=== PATIENT | female | born 1945 | race Caucasian/White ===

== ENCOUNTER 2016-12-23 14:49 | Outpatient (CLI) | payer MEDICARE | END 2016-12-23 14:50 | disposition home or self-care (01) | DX: S22.42XA Multiple fractures of ribs, left side, initial encounter for closed fracture (principal); R07.81 Pleurodynia ==

== ENCOUNTER 2017-03-02 08:09 | Outpatient (CLI) | payer MEDICARE ==
[2017-03-02 10:57] LABS: BASOPHILS # (AUTO) 0.1 10^3/uL (0.0-0.1); BASOPHILS % (AUTO) 1.7 %; EOSINOPHILS # (AUTO) 0.2 10^3/uL (0.0-0.7); EOSINOPHILS % (AUTO) 5.3 %; HCT - HEMATOCRIT 44.8 % (37.0-47.0); HGB - HEMOGLOBIN 14.9 g/dL (12.0-16.0); LYMPHOCYTES # (AUTO) 1.1 10^3/uL (1.5-3.5); LYMPHOCYTES % (AUTO) 25.2 %; MEAN CORPUSCULAR HEMOGLOBIN 28.4 pg (27.0-31.0); MEAN CORPUSCULAR HGB CONC 33.3 g/dL (32.0-36.0); MEAN CORPUSCULAR VOLUME 85.3 fL (81.0-99.0); MEAN PLATELET VOLUME 9.3 fL (7.9-10.8); MONOCYTES # (AUTO) 0.4 10^3/uL (0.0-1.0); MONOCYTES % (AUTO) 9.2 %; NEUTROPHILS # (AUTO) 2.5 10^3/uL (1.5-6.6); NEUTROPHILS % (AUTO) 58.6 %; RED BLOOD COUNT 5.25 10^6/uL (4.20-5.40); RED CELL DISTRIBUTION WIDTH 13.4 % (12.0-15.0); UNCORRECTED WHITE BLOOD COUNT 4.2 x10^3/uL; WHITE BLOOD COUNT 4.2 x10^3/uL (4.8-10.8)
[2017-03-02 11:17] LABS: HEMOGLOBIN A1C 0.65 g/dL
[2017-03-02 11:19] LABS: ALBUMIN/GLOBULIN RATIO 1.4 (1.0-2.2); BILIRUBIN,TOTAL 0.9 mg/dL (0.2-1.0); BUN - BLOOD UREA NITROGEN 16 mg/dL (6-20); CALCIUM 9.2 mg/dL (8.5-10.3); CARBON DIOXIDE - CO2 28 mmol/L (21-32); CHLORIDE 103 mmol/L (101-111); CHOL/HDL RATIO 4.3 (<4.4); CHOLESTEROL 235 mg/dL; CREATININE 0.9 mg/dL (0.4-1.0); GFR - MDRD 62 (>89); GLUCOSE 106 mg/dL (70-100); HDL CHOLESTEROL 55 mg/dL; LDL/HDL RATIO 2.9 (<4.4); POTASSIUM 3.8 mmol/L (3.5-5.0); SODIUM 140 mmol/L (135-145); TRIGLYCERIDES 109 mg/dL; VLDL CHOLESTEROL 22 mg/dL
[2017-03-02 11:34] LABS: FERRITIN 27.8 ng/mL (11.0-306.8); TOTAL T3 1.46 ng/mL (0.87-1.78)
[2017-03-02 11:46] LABS: THYROID STIMULATING HORMONE 3.6 uIU/mL (0.34-5.60)
== END 2017-03-02 08:10 | disposition home or self-care (01) ==
LOC: LAB.F 08:09
PROVIDERS: ATTEND Family Medicine
DX: Z00.00 Encounter for general adult medical examination without abnormal findings (principal); R53.83 Other fatigue; R73.09 Other abnormal glucose
CPT/HCPCS: 36415; 80053; 80061; 82306; 82728; 83036; 84439; 84443; 84480; 84481; 84482; 85025

== ENCOUNTER 2017-03-09 13:04 | Outpatient (CLI) | payer MEDICARE | END 2017-03-09 13:05 | disposition home or self-care (01) | DX: M81.0 Age-related osteoporosis without current pathological fracture (principal); M43.9 Deforming dorsopathy, unspecified ==

== ENCOUNTER 2017-03-09 13:05 | Outpatient (CLI) | payer MEDICARE | END 2017-03-09 13:06 | disposition home or self-care (01) | DX: Z12.31 Encounter for screening mammogram for malignant neoplasm of breast (principal) ==

== ENCOUNTER 2017-06-14 14:53 | Outpatient (CLI) | payer MEDICARE ==
--- NOTE | 2017-06-15 13:33 | XRAY Report ---
TWO VIEW RIGHT LOWER LE06/14/2017 CLINICAL INDICATION: Contusion, trauma. FINDINGS: Frontal and lateral views of the right lower leg demonstrate pretibial soft tissue swellin g distally. There is no evidence of acute fracture or dislocation. No foreign body is seen in the sof t tissues. IMPRESSION: SOFT TISSUE SWELLING, BUT NO EVIDENCE OF ACUTE FRACTURE. JOB #: [id number] EXT JOB #:[id number]
== END 2017-06-14 14:54 | disposition home or self-care (01) ==
LOC: DI.S 14:53
PROVIDERS: ATTEND Family Medicine
DX: M79.9 Soft tissue disorder, unspecified (principal)

== ENCOUNTER 2018-02-27 07:57 | Outpatient (CLI) | payer MEDICARE ==
[2018-02-27 12:09] LABS: ALBUMIN 3.6 g/dL (3.2-5.5); ALBUMIN/GLOBULIN RATIO 1.2 (1.0-2.2); ALKALINE PHOSPHATASE 98 IU/L (42-121); ALT ALANINE AMINOTRANSFERASE 18 IU/L (10-60); AST ASPARTATE AMINOTRANSFERASE 17 IU/L (10-42); BILIRUBIN,TOTAL 0.9 mg/dL (0.2-1.0); BUN - BLOOD UREA NITROGEN 25 mg/dL (6-20); CALCIUM 9.1 mg/dL (8.5-10.3); CARBON DIOXIDE - CO2 29 mmol/L (21-32); CHLORIDE 105 mmol/L (101-111); CHOL/HDL RATIO 4.2 (<4.4); CHOLESTEROL 213 mg/dL; CREATININE 0.9 mg/dL (0.4-1.0); GFR - MDRD 62 (>89); GLUCOSE 99 mg/dL (70-100); HDL CHOLESTEROL 51 mg/dL; LDL CHOLESTEROL,CALCULATED 139 mg/dL; LDL/HDL RATIO 2.7 (<4.4); SODIUM 140 mmol/L (135-145); TOTAL PROTEIN 6.6 g/dL (6.7-8.2); VLDL CHOLESTEROL 23 mg/dL
[2018-02-27 12:25] LABS: THYROID STIMULATING HORMONE 2.85 uIU/mL (0.34-5.60)
[2018-02-27 12:27] LABS: FREE T4 (FREE THYROXINE) 0.78 ng/dL (0.58-1.64)
[2018-02-27 12:32] LABS: FERRITIN 32.7 ng/mL (11.0-306.8); TOTAL T3 1.37 ng/mL (0.87-1.78)
[2018-02-27 12:45] LABS: HB2 TOTAL 16.2 g/dL; HEMOGLOBIN A1C 0.56 g/dL; HEMOGLOBIN A1C % 5.3 % (4.6-6.2)
[2018-02-27 17:39] LABS: BASOPHILS # (AUTO) 0.1 10^3/uL (0.0-0.1); BASOPHILS % (AUTO) 1.4 %; EOSINOPHILS # (AUTO) 0.2 10^3/uL (0.0-0.7); EOSINOPHILS % (AUTO) 5.7 %; HGB - HEMOGLOBIN 14.8 g/dL (12.0-16.0); LYMPHOCYTES # (AUTO) 1.3 10^3/uL (1.5-3.5); LYMPHOCYTES % (AUTO) 31.4 %; MEAN CORPUSCULAR HEMOGLOBIN 29.1 pg (27.0-31.0); MEAN CORPUSCULAR VOLUME 88.3 fL (81.0-99.0); MEAN PLATELET VOLUME 9.5 fL (7.9-10.8); MONOCYTES # (AUTO) 0.3 10^3/uL (0.0-1.0); MONOCYTES % (AUTO) 8.5 %; NEUTROPHILS # (AUTO) 2.1 10^3/uL (1.5-6.6); PLT - PLATELET COUNT 236 10^3/uL (130-450); RED BLOOD COUNT 5.08 10^6/uL (4.20-5.40); RED CELL DISTRIBUTION WIDTH 13.8 % (12.0-15.0)
== END 2018-02-27 07:58 | disposition home or self-care (01) ==
LOC: LAB.F 07:57
PROVIDERS: ATTEND Family Medicine
DX: Z00.00 Encounter for general adult medical examination without abnormal findings (principal); E03.9 Hypothyroidism, unspecified; R53.83 Other fatigue; E55.9 Vitamin D deficiency, unspecified
CPT/HCPCS: 36415; 80053; 80061; 82306; 82728; 83036; 83721; 84439; 84443; 84480; 84481; 85025

== ENCOUNTER 2019-03-09 07:30 | Outpatient (CLI) | payer MEDICARE ==
[2019-03-09 10:19] LABS: BASOPHILS # (AUTO) 0.1 10^3/uL (0.0-0.1); BASOPHILS % (AUTO) 1.2 %; EOSINOPHILS # (AUTO) 0.2 10^3/uL (0.0-0.7); EOSINOPHILS % (AUTO) 4.9 %; HGB - HEMOGLOBIN 15.5 g/dL (12.0-16.0); LYMPHOCYTES # (AUTO) 1.4 10^3/uL (1.5-3.5); LYMPHOCYTES % (AUTO) 32.9 %; MEAN CORPUSCULAR HEMOGLOBIN 28.7 pg (27.0-31.0); MONOCYTES # (AUTO) 0.4 10^3/uL (0.0-1.0); MONOCYTES % (AUTO) 8.8 %; NEUTROPHILS # (AUTO) 2.3 10^3/uL (1.5-6.6); PLT - PLATELET COUNT 239 10^3/uL (130-450); WHITE BLOOD COUNT 4.3 x10^3/uL (4.8-10.8)
[2019-03-09 10:38] LABS: ALBUMIN/GLOBULIN RATIO 1.3 (1.0-2.2); ALKALINE PHOSPHATASE 86 IU/L (42-121); ALT ALANINE AMINOTRANSFERASE 17 IU/L (10-60); AST ASPARTATE AMINOTRANSFERASE 17 IU/L (10-42); BILIRUBIN,TOTAL 0.7 mg/dL (0.2-1.0); BUN - BLOOD UREA NITROGEN 21 mg/dL (6-20); CALCIUM 9.2 mg/dL (8.5-10.3); CARBON DIOXIDE - CO2 27 mmol/L (21-32); CHLORIDE 104 mmol/L (101-111); CHOL/HDL RATIO 4.3 (<4.4); CHOLESTEROL 238 mg/dL; CREATININE 0.8 mg/dL (0.4-1.0); GFR - MDRD 71 (>89); GLUCOSE 99 mg/dL (70-100); HDL CHOLESTEROL 56 mg/dL; LDL CHOLESTEROL,CALCULATED 155 mg/dL; LDL/HDL RATIO 2.8 (<4.4); SODIUM 140 mmol/L (135-145); VLDL CHOLESTEROL 27 mg/dL
[2019-03-09 10:52] LABS: THYROID STIMULATING HORMONE 3.35 uIU/mL (0.34-5.60)
[2019-03-09 10:53] LABS: FREE T4 (FREE THYROXINE) 0.87 ng/dL (0.58-1.64)
[2019-03-09 10:57] LABS: TOTAL T3 1.35 ng/mL (0.87-1.78)
[2019-03-09 10:58] LABS: FERRITIN 27.1 ng/mL (11.0-306.8)
[2019-03-09 11:06] LABS: HEMOGLOBIN A1C 0.64 g/dL; HEMOGLOBIN A1C % 5.6 % (4.6-6.2)
== END 2019-03-09 07:31 | disposition home or self-care (01) ==
LOC: LAB.S 07:30
PROVIDERS: ATTEND Family Medicine
DX: Z00.00 Encounter for general adult medical examination without abnormal findings (principal); E03.9 Hypothyroidism, unspecified; E55.9 Vitamin D deficiency, unspecified; R73.09 Other abnormal glucose; D64.9 Anemia, unspecified; R53.83 Other fatigue
CPT/HCPCS: 36415; 80053; 80061; 82306; 82626; 82728; 83036; 83090; 83721; 84439; 84443; 84480; 84481; 85025

== ENCOUNTER 2019-04-11 10:35 | Outpatient (CLI) | payer MEDICARE ==
--- NOTE | 2019-04-12 17:09 | XRAY Report ---
Reason: LUMBAR BACK INJURY 2 WKS AGO, WORSENING PAIN WEA Procedure Date: 04/11/2019 Accession Number: [id number] / [id number] Procedure: XRS - Lumbar Spine 2 View CPT Code: FULL RESULT: EXAM: LUMBOSACRAL SPINE RADIOGRAPHY EXAM DATE: 04/11/2019 10:51 AM. CLINICAL HISTORY: LUMBAR BACK INJURY 2 WKS AGO, WORSENING PAIN WEA. COMPARISONS: PELVIS 1 VIEW 04/11/2019 10:54 AM LUMBAR SPINE 2 VIEW 03/09/2017 1:40 PM. TECHNIQUE: 3 views. FINDINGS: Alignment: Minimal left convex lumbar curvature. Bones: Five [id number] lumbar vertebral bodies are present. Severe osteopenia again noted limiting evaluation. No acute fracture lines are seen. Prior anterior compression of T12, L1, and L3 appear unchanged. No new compression deformities are evident. Disks: Multilevel mild to moderate disk height loss with disk osteophytes again seen. Facets: Multilevel moderate to severe degenerative facet hypertrophy noted. Sacroiliac Joints: Unremarkable. Soft Tissues: Normal. The visualized bowel gas pattern is normal. IMPRESSION: 1. Osteopenia without evidence for acute fracture of the lumbar spine. 2. Prior compression deformities in T12, L1, and L3 appear essentially unchanged. 3. Multilevel degenerative changes seen in the lumbar spine. RADIA
--- NOTE | 2019-04-12 17:11 | XRAY Report ---
Reason: LUMBAR BACK INJURY 2 WKS AGO, WORSENING PAIN WEA Procedure Date: 04/11/2019 Accession Number: [id number] / [id number] Procedure: XRS - Pelvis 1 View CPT Code: FULL RESULT: EXAM: PELVIS RADIOGRAPHY EXAM DATE: 04/11/2019 10:51 AM. CLINICAL HISTORY: LUMBAR BACK INJURY 2 WKS AGO, WORSENING PAIN WEA. COMPARISON: HIP 2 VIEW RT 01/10/2015 5:16 PM. TECHNIQUE: 1 view. FINDINGS: Bones: Normal. No fracture or bone lesion. Joints: The visualized hip, pubis symphysis, and sacroiliac joints are preserved. No subluxation. Soft Tissues: Normal. No soft tissue swelling. IMPRESSION: Normal pelvis radiography. RADIA
== END 2019-04-11 10:36 | disposition home or self-care (01) ==
LOC: DI.S 10:35
PROVIDERS: ATTEND Family Medicine
DX: M51.36 Other intervertebral disc degeneration, lumbar region (principal); M48.56XS Collapsed vertebra, not elsewhere classified, lumbar region, sequela of fracture; M48.54XS Collapsed vertebra, not elsewhere classified, thoracic region, sequela of fracture; M47.816 Spondylosis without myelopathy or radiculopathy, lumbar region; M85.88 Other specified disorders of bone density and structure, other site
CPT/HCPCS: 72100; 72170

== ENCOUNTER 2019-04-13 08:16 | Outpatient (CLI) | payer MEDICARE ==
--- NOTE | 2019-04-13 09:41 | Mammography Report ---
Reason: SCREENING MAMMO Procedure Date: 04/13/2019 Accession Number: [id number] / [id number] Procedure: BRIAN - Screening Mammo w/Kevin CPT Code: FULL RESULT: EXAM: Screening Mammo w/Kevin DATE: 04/13/2019 8:46 AM CLINICAL HISTORY: Screening encounter. History of nulliparity. TECHNIQUE: (B) - Bilateral CC and MLO views were obtained. A right laterally exaggerated CC view is obtained. COMPARISON: 03/09/2017 through 04/02/2013. PARENCHYMAL PATTERN: (A) - The breast(s) demonstrate(s) scattered fibroglandular densities. FINDINGS: There are coarse typically benign calcifications. There are no suspicious masses, calcifications, or areas of distortion. IMPRESSION: Benign findings. BI-RADS category 2. RECOMMENDATION: (ANNUAL) - Recommend routine annual screening mammography. BI-RADS CATEGORY: (2) - Benign Findings. STANDARD QUALIFYING STATEMENTS: 1. This examination was not reviewed with the aid of Computer-Aided Detection (CAD). 2. A negative or benign imaging report should not preclude biopsy if clinically suspicious findings are present. 3. Dense breasts may obscure an underlying neoplasm. 4. This examination was reviewed with the aid of 3D breast imaging (tomosynthesis).
== END 2019-04-13 08:17 | disposition home or self-care (01) ==
LOC: DI 08:16
PROVIDERS: ATTEND Family Medicine
DX: Z12.31 Encounter for screening mammogram for malignant neoplasm of breast (principal)
CPT/HCPCS: 77063; 77067

== ENCOUNTER 2019-04-13 08:22 | Outpatient (CLI) | payer MEDICARE ==
--- NOTE | 2019-04-16 08:34 | DEXA Report ---
Reason: OSTEOPORSIS Procedure Date: 04/13/2019 Accession Number: [id number] / [id number] Procedure: DEX - Dexa Spine and/or Hip CPT Code: FULL RESULT: EXAM: Dexa Spine and/or Hip DATE: 04/13/2019 9:18 AM CLINICAL HISTORY: OSTEOPORSIS TECHNIQUE: Dual energy x-ray absorptiometry (DXA) was performed on a [employer] System. Regions measured are the AP Spine, femoral neck, and if needed forearm. COMPARISON: None. In accordance with the International Society for Clinical Densitometry (ISCD) guidelines, data from previous exams may be reanalyzed using current recommendations and techniques. This is done to allow a more accurate basis for comparison with the current study. FINDINGS: The data for the lumbar spine is as follows: BMD (g/cm/cm) T-SCORE Z-SCORE REGION L1 0.643 -4.1 -2.4 L2 0.607 -4.9 -3.3 L3 0.934 -2.2 -0.5 L4 0.706 -4.1 -2.4 TOTAL 0.724 -3.8 -2.1 NOTE: All evaluable vertebrae are used for classification The data for the hip is as follows: BMD (g/cm/cm) T-SCORE Z-SCORE REGION Neck 0.705 -2.4 -0.6 TOTAL 0.704 -2.4 -0.9 NOTE: The femoral neck or total proximal femur, whichever is lowest, is used for classification. DXA RESULTS SUMMARY: Spine SCAN DATE AGE BMD CHANGE VS CHANGE VS PREVIOUS PREVIOUS % 73.9 0.724 0.063* 9.5* 69.8 0.661 * Denotes significant change at the 95% confidence level. Denotes dissimilar scan types or analysis methods. DXA RESULTS SUMMARY: Hip SCAN DATE AGE BMD CHANGE VS CHANGE VS PREVIOUS PREVIOUS % 04/13/2019 73.9 0.704 -0.036* -4.9* 03[birth year]09/2017 [age] 0.740 * Denotes significant change at the 95% confidence level. Denotes dissimilar scan types or analysis methods. IMPRESSION: THE WHO CLASSIFICATION BASED ON THE INTERNATIONAL REFERENCE STANDARD IS OSTEOPOROSIS. THE FRACTURE RISK IS HIGH. RECOMMENDATION: Patients with diagnosis of osteoporosis or osteopenia should have regular bone mineral density assessment. For those eligible for Medicare, routine testing is allowed once every 2 years. Testing frequency can be increased for patients who have rapidly progressing disease or for those who are receiving medical therapy to restore bone mass. COMMENT: World Health Organization (WHO) definitions for osteoporosis and osteopenia: NORMAL BMD: T-score at -1.0 or higher, fracture risk is low OSTEOPENIA BMD: T-score between -1.0 and -2.5, fracture risk is increased. OSTEOPOROSIS BMD: T-score at -2.5 or lower, fracture risk is high. National Osteoporosis Foundation recommends: 1. Obtain adequate dietary calcium (at least 1200 mg per day) and vitamin D (400-800 international units per day). 2. Participate, as appropriate, in regular weightbearing and muscle-strengthening exercise. 3. Avoid tobacco use and reduce alcohol and caffeine intake. 4. For more detailed information see the website at www.NOF.org.
== END 2019-04-13 08:23 | disposition home or self-care (01) ==
LOC: DI 08:22
PROVIDERS: ATTEND Family Medicine
DX: M81.0 Age-related osteoporosis without current pathological fracture (principal)
CPT/HCPCS: 77080

== ENCOUNTER 2020-03-24 07:33 | Outpatient (CLI) | payer MEDICARE ==
[2020-03-24 15:22] LABS: BASOPHILS # (AUTO) 0.1 10^3/uL (0.0-0.1); BASOPHILS % (AUTO) 1.1 %; EOSINOPHILS # (AUTO) 0.2 10^3/uL (0.0-0.7); EOSINOPHILS % (AUTO) 4.5 %; HGB - HEMOGLOBIN 13.3 g/dL (12.0-16.0); LYMPHOCYTES # (AUTO) 1.4 10^3/uL (1.5-3.5); LYMPHOCYTES % (AUTO) 31.3 %; MEAN CORPUSCULAR HEMOGLOBIN 26.7 pg (27.0-31.0); MEAN CORPUSCULAR HGB CONC 31.3 g/dL (32.0-36.0); MEAN CORPUSCULAR VOLUME 85.3 fL (81.0-99.0); MEAN PLATELET VOLUME 11.4 fL (7.9-10.8); MONOCYTES # (AUTO) 0.5 10^3/uL (0.0-1.0); MONOCYTES % (AUTO) 10.2 %; NEUTROPHILS # (AUTO) 2.3 10^3/uL (1.5-6.6); NEUTROPHILS % (AUTO) 52.7 %; PLT - PLATELET COUNT 266 10^3/uL (130-450); RED BLOOD COUNT 4.98 10^6/uL (4.20-5.40); RED CELL DISTRIBUTION WIDTH 13.2 % (12.0-15.0); WHITE BLOOD COUNT 4.4 x10^3/uL (4.8-10.8)
[2020-03-24 15:44] LABS: ALBUMIN 3.7 g/dL (3.2-5.5); ALBUMIN/GLOBULIN RATIO 1.3 (1.0-2.2); ALKALINE PHOSPHATASE 58 IU/L (42-121); ALT ALANINE AMINOTRANSFERASE 18 IU/L (10-60); AST ASPARTATE AMINOTRANSFERASE 19 IU/L (10-42); BILIRUBIN,TOTAL 0.7 mg/dL (0.2-1.0); BUN - BLOOD UREA NITROGEN 26 mg/dL (6-20); CARBON DIOXIDE - CO2 28 mmol/L (21-32); CHLORIDE 104 mmol/L (101-111); CHOL/HDL RATIO 3.7 (<4.4); CHOLESTEROL 192 mg/dL; CREATININE 0.9 mg/dL (0.4-1.0); CRP HIGH SENSITIVITY 0.8 mg/L; GLUCOSE 100 mg/dL (70-100); HDL CHOLESTEROL 52 mg/dL; LDL CHOLESTEROL,CALCULATED 126 mg/dL; LDL/HDL RATIO 2.4 (<4.4); SODIUM 138 mmol/L (135-145); TOTAL PROTEIN 6.6 g/dL (6.7-8.2); VLDL CHOLESTEROL 14 mg/dL
[2020-03-24 15:46] LABS: THYROID STIMULATING HORMONE 3.51 uIU/mL (0.34-5.60)
[2020-03-24 15:48] LABS: FREE T3 3.39 pg/mL (2.5-3.9); FREE T4 (FREE THYROXINE) 0.82 ng/dL (0.58-1.64)
[2020-03-24 15:51] LABS: HB2 TOTAL 13.8 g/dL; HEMOGLOBIN A1C 0.54 g/dL; HEMOGLOBIN A1C % 5.7 % (4.6-6.2)
[2020-03-24 15:53] LABS: FERRITIN 9.7 ng/mL (11.0-306.8); TOTAL T3 1.37 ng/mL (0.87-1.78)
[2020-03-25 13:19] LABS: HOMOCYSTEINE 12.9 umol/L (<10.4)
== END 2020-03-24 07:34 | disposition home or self-care (01) ==
LOC: LAB.S 07:33
PROVIDERS: ATTEND Family Medicine
DX: Z00.00 Encounter for general adult medical examination without abnormal findings (principal); D64.9 Anemia, unspecified; R53.83 Other fatigue; E03.9 Hypothyroidism, unspecified; E78.5 Hyperlipidemia, unspecified; E72.11 Homocystinuria
CPT/HCPCS: 36415; 80053; 80061; 82626; 82728; 83036; 83090; 83721; 84439; 84443; 84480; 84481; 85025; 86141

== ENCOUNTER 2020-05-20 16:07 | Outpatient (CLI) | payer MEDICARE ==
--- NOTE | 2020-05-20 17:05 | XRAY Report ---
PROCEDURE: Hand 3 View LT INDICATIONS: NON TRAUMATIC BRUISE/SWELLING TECHNIQUE: 3 views of the hand(s) acquired. COMPARISON: none FINDINGS: Bones: No fractures or dislocations. No suspicious bony lesions. Soft tissues: No suspicious soft tissue calcifications. IMPRESSION: No visualized acute fracture or dislocation. However, occult injury cannot be excluded. Recommend gilma rt interval imaging follow-up in 7-10 days as clinically indicated for additional evaluation. Reviewed by: Carolyn Baugh MD on 05/20/2020 5:03 PM PDT Approved by: Carolyn Baugh MD on 05/20/2020 5:03 PM PDT Station ID: [id number]
[2020-05-20 20:08] LABS: BASOPHILS # (AUTO) 0.1 10^3/uL (0.0-0.1); BASOPHILS % (AUTO) 1.2 %; EOSINOPHILS # (AUTO) 0.3 10^3/uL (0.0-0.7); EOSINOPHILS % (AUTO) 4.6 %; HGB - HEMOGLOBIN 13.1 g/dL (12.0-16.0); LYMPHOCYTES # (AUTO) 2.1 10^3/uL (1.5-3.5); LYMPHOCYTES % (AUTO) 30.3 %; MEAN CORPUSCULAR HEMOGLOBIN 26.8 pg (27.0-31.0); MEAN CORPUSCULAR HGB CONC 31.3 g/dL (32.0-36.0); MEAN CORPUSCULAR VOLUME 85.7 fL (81.0-99.0); MEAN PLATELET VOLUME 11.8 fL (7.9-10.8); MONOCYTES # (AUTO) 0.6 10^3/uL (0.0-1.0); MONOCYTES % (AUTO) 8.4 %; NEUTROPHILS # (AUTO) 3.7 10^3/uL (1.5-6.6); NEUTROPHILS % (AUTO) 55.2 %; PLT - PLATELET COUNT 239 10^3/uL (130-450); RED BLOOD COUNT 4.89 10^6/uL (4.20-5.40); RED CELL DISTRIBUTION WIDTH 15.1 % (12.0-15.0); WHITE BLOOD COUNT 6.8 x10^3/uL (4.8-10.8)
== END 2020-05-20 16:08 | disposition home or self-care (01) ==
LOC: DI.S 16:07
PROVIDERS: ATTEND Family Medicine
DX: S60.222A Contusion of left hand, initial encounter (principal); M79.643 Pain in unspecified hand; R22.43 Localized swelling, mass and lump, lower limb, bilateral; L03.114 Cellulitis of left upper limb
CPT/HCPCS: 36415; 85025; 85651; 86140

== ENCOUNTER 2020-05-30 12:31 | Outpatient (CLI) | payer MEDICARE ==
--- NOTE | 2020-05-30 15:15 | XRAY Report ---
PROCEDURE: Hand 3 View LT INDICATIONS: NONTRAUMATIC EDEMA/BRUISING LEFT HAND TECHNIQUE: 3 views of the hand(s) acquired. COMPARISON: None FINDINGS: Bones: No fractures or dislocations. No suspicious bony lesions. Soft tissues: No suspicious soft tissue calcifications. IMPRESSION: No osseous lesion. If there is continued clinical concern for pathology, then repeat plain film radio graphs (7-10 days) or advanced imaging (CT, MR, bone scan) should be considered for further evaluatio n. Reviewed by: Amairani Grant MD, PhD on 05/30/2020 3:14 PM PDT Approved by: Amairani Grant MD, PhD on 05/30/2020 3:14 PM PDT Station ID: [id number]
== END 2020-05-30 12:32 | disposition home or self-care (01) ==
LOC: DI.S 12:31
PROVIDERS: ATTEND Family Medicine
DX: S60.222A Contusion of left hand, initial encounter (principal); R60.0 Localized edema

== ENCOUNTER 2020-10-23 10:08 | Outpatient (CLI) | payer MEDICARE ==
--- NOTE | 2020-10-23 14:07 | DEXA Report ---
PROCEDURE: Dexa Spine and/or Hip INDICATIONS: OSTEOPOROSIS TECHNIQUE: Dual energy x-ray absorptiometry (DXA) was performed on a [employer] System. Regions measur ed are the AP Spine, femoral neck, and if needed forearm. COMPARISON: 04/13/2019 FINDINGS: Lumbar Spine: Bone Mineral Density 0.806 g/cm/cm,T score -3.1, osteoporosis, change from previous 11.3%, signifi cant Left Hip: Bone Mineral Density 0.790 g/cm/cm,T score -1.7, osteopenia, change from previous 12.2%, significant Left Femoral Neck: Bone Mineral Density 0.796 g/cm/cm, T score -1.7, osteopenia, change from previous -4.9%, significan t (T score greater or equal to -1.0: NORMAL) (T score from -1.1 to -2.4: OSTEOPENIA) (T score less than or equal to -2.5 to: OSTEOPOROSIS) Impression: 1. Significant interval increase in bone mineral density of the lumbar spine and left hip compared to the prior study. 2. Significant interval decrease in left femoral neck bone mineral density. 3. Osteoporosis results in a high fracture risk for this patient despite increase in bone mineral den sity. Patients with diagnosis of osteoporosis or osteopenia should have regular bone mineral density assess ment. For those eligible for Medicare, routine testing is allowed once every 2 years. Testing frequ ency can be increased for patients who have rapidly progressing disease or for those who are receivin g medical therapy to restore bone mass. Reviewed by: Anabel Spaulding MD on 10/23/2020 10:49 AM SRUTHI Approved by: Anabel Spaulding MD on 10/23/2020 10:49 AM IA Station ID: [id number]
== END 2020-10-23 10:09 | disposition home or self-care (01) ==
LOC: DI 10:08
PROVIDERS: ATTEND Family Medicine
DX: M81.0 Age-related osteoporosis without current pathological fracture (principal)

== ENCOUNTER 2020-11-18 15:09 | Outpatient (CLI) | payer MEDICARE ==
--- NOTE | 2020-11-19 15:09 | Mammography Report ---
BILATERAL DIGITAL SCREENING MAMMOGRAM 3D/2D WITH EXAGGERATED CC: 11/18/2020 CLINICAL: Routine screening. Comparison is made to exams dated: 04/13/2019 mammogram, 03/09/2017 mammogram, and 02/11/2015 mammogram - [facility]. There are scattered fibroglandular elements in both breasts. No significant masses, calcifications, or other findings are seen in either breast. There has been no significant interval change. IMPRESSION: NEGATIVE There is no mammographic evidence of malignancy. A 1 year screening mammogram is recommended. This exam was interpreted at Station ID: [id number]. NOTE: For mammograms, a report in lay terms will be sent to the patient. Approximately 15% of breast malignancies will not be visualized mammographically. In the management of a palpable breast mass, a negative mammogram must not discourage biopsy of a clinically suspicious lesion. Electronically Signed By: Gwyn Dennison M.D. ar/amolrad:11/18/2020 16:30:29 ACR BI-RADS Category 1: Negative 3341F PARENCHYMAL PATTERN: (A) - The breast(s) demonstrate(s) scattered fibroglandular densities. BI-RADS CATEGORY: (1) - 1 RECOMMENDATION: (ANNUAL) - Recommend routine annual screening mammography. [id number] 1 year screening LATERALITY: (B)
== END 2020-11-18 15:10 | disposition home or self-care (01) ==
LOC: DI.S 15:09
PROVIDERS: ATTEND Family Medicine
DX: Z12.31 Encounter for screening mammogram for malignant neoplasm of breast (principal)

== ENCOUNTER 2021-01-29 08:59 | Outpatient (CLI) | payer MEDICARE, OTHER ==
--- NOTE | 2021-01-29 10:28 | CARDIAC PROCEDURE NOTE ---
Stress Test Report Service Date: 01/29/21 Ordering Provider: Dr Bi Butt Indication for Test: Syncope Cardiac Risk Factors: Postmenopausal status, possibly untreated hypertension, family history of heart disease (brother has pacemaker defibrillator). Type of Stress Test: ETT with Echocardiography Procedure: After signing informed consent, the patient underwent a Aneudy-protocol treadmill stress test with Echocardiographic imaging pre- and post-exercise. Resting heart rate: 63 Peak heart rate: 125 (85% predicted maximum heart rate for age) Resting BP (sitting): 174/98, (standing): 156/96 Peak blood pressure:198/82 Patient exercised for 5 minutes and 25 seconds on a Aneudy-protocol treadmill stress test. She achieved a peak heart rate of 125 (85% PMHR), and 7.05 METS. The patient had no chest pain or lightheadedness. Patient felt she was mildly short of breath at peak, but clinical impression was that she was moderate- severely short of breath at peak. She rated her perceived exertion at 13/20 at peak on the Odalis scale. Oxygen saturation was 98% on room air at rest, 94% with exercise and recovered to 97% after exercise. Resting EKG: Ectopic atrial rhythm, LVH voltage. EKG at peak: Sinus rhythm seen, scooping and upsloping ST-segment depressions inferolaterally (consistent with strain pattern of LVH). Recovery EKG at 1 min: Rapid heart rate recovery to 90bpm, in ectopic atrial rhythm again, slight resolution of strain changes. Summary: 1) Abnormal resting EKG showing LVH. 2) Abnormal cardiac rhythm at rest and in recovery. 3) HTN seen throughout test. 4) Fair exercise tolerance. 5) Nonspecific EKG ST-segment changes develop, which are consistent with LVH strain pattern and probably not ischemia. 6) Echo images were reported separately and showed: Significant concentric LVH present and senile sigmoid septum. Normal LV wall motion at rest with LVEF 65- 70%. After exercise, normal hyperdynamic augmentation of all LV segments; there are nearly "kissing ramos" of the LV which could result in LV outflow tract obstruction and a drop in blood pressure. IMPRESSION: 1) Abnormal cardiac rhythm. 2) Normal stress test regarding coronary ischemia. 3) Probable untreated hypertension resulting in LVH. 4) Hyperdynamic LV function creating possible LV outflow tract obstruction which could result in abnormal outflow gradient and cause syncope. 5) This patient's overall cardiac risk: Moderate. RECOMMENDAIONS: 1) 24-hour Holter monitor. 2) Full Echo with Doppler to evaluate for hemodynamics of IHSS. 3) Consider a tilt table test and consider referral to Cardiology. 4) Patient was instructed NOT TO DRIVE if she has any future syncopal events.
== END 2021-01-29 09:00 | disposition home or self-care (01) ==
LOC: DI 08:59
PROVIDERS: ATTEND Family Medicine
DX: I49.9 Cardiac arrhythmia, unspecified (principal); I51.89 Other ill-defined heart diseases; Z78.0 Asymptomatic menopausal state; Z82.49 Family history of ischemic heart disease and other diseases of the circulatory system
CPT/HCPCS: 93350

== ENCOUNTER 2021-05-16 11:07 | Outpatient (CLI) | payer MEDICARE, OTHER ==
--- NOTE | 2021-05-16 12:29 | XRAY Report ---
PROCEDURE: Knee 3 View LT INDICATIONS: LEFT KNEE UNABLE TO BEAR WT/SWELLING TECHNIQUE: 3 views of the left knee(s) were acquired. COMPARISON: None. FINDINGS: Bones: No fractures or dislocations. No suspicious bony lesions. Soft tissues: Trace joint effusion. No suspicious soft tissue calcifications. IMPRESSION: No fracture or dislocation. Trace joint effusion. Reviewed by: John Fowler MD on 05/16/2021 11:27 AM CHAZ Approved by: John Fowler MD on 05/16/2021 11:27 AM CHAZ Station ID: [id number]
== END 2021-05-16 11:08 | disposition home or self-care (01) ==
LOC: DI.S 11:07
PROVIDERS: ATTEND Family Medicine
DX: M25.562 Pain in left knee (principal)

== ENCOUNTER 2022-11-24 14:20 | Outpatient (CLI) | payer MEDICARE ==
--- NOTE | 2022-11-24 15:36 | DEXA Report ---
PROCEDURE: Dexa Spine and/or Hip INDICATIONS: OSTEOPOROSIS TECHNIQUE: Dual energy x-ray absorptiometry (DXA) was performed on a [employer] System. Regions measur ed are the AP Spine, femoral neck, and if needed forearm. COMPARISON: 10/23/2020 FINDINGS: Lumbar Spine: Bone Mineral Density 0.74 g/cm/cm,T score -3.7, previously -3.1 Left Femoral Neck: Bone Mineral Density 0.67 g/cm/cm, T score -2.7, previously -1.7 Left Hip: Bone Mineral Density 0.68 g/cm/cm,T score -2.6, previously -1.7 (T score greater or equal to -1.0: NORMAL) (T score from -1.1 to -2.4: OSTEOPENIA) (T score less than or equal to -2.5 to: OSTEOPOROSIS) Impression: Osteoporosis with significantly increased fracture risk. T-scores are decreased compared to prior earl ging. Patients with diagnosis of osteoporosis or osteopenia should have regular bone mineral density assess ment. For those eligible for Medicare, routine testing is allowed once every 2 years. Testing frequ ency can be increased for patients who have rapidly progressing disease or for those who are receivin g medical therapy to restore bone mass. Reviewed by: Michoacano Albright MD on 11/24/2022 3:35 PM PDT Approved by: Michoacano Albright MD on 11/24/2022 3:35 PM PDT Station ID: [id number]
== END 2022-11-24 14:21 | disposition home or self-care (01) ==
LOC: DI 14:20
PROVIDERS: ATTEND Family Medicine
DX: M81.0 Age-related osteoporosis without current pathological fracture (principal); N95.9 Unspecified menopausal and perimenopausal disorder

== ENCOUNTER 2022-11-24 14:20 | Outpatient (CLI) | payer MEDICARE ==
--- NOTE | 2022-11-25 09:17 | Mammography Report ---
BILATERAL DIGITAL SCREENING MAMMOGRAM 3D/2D: 11/24/2022 CLINICAL: Routine screening. Comparison is made to exams dated: 11/18/2020 mammogram, 04/13/2019 mammogram, 03/09/2017 mammogram, 2014 mammogram, and 04/02/2013 mammogram - [facility]. There are scattered areas of fibroglandular density in both breasts (category b / 25%-50% glandular t issue). No significant masses, calcifications, or other findings are seen in either breast. There has been no significant interval change. IMPRESSION: NEGATIVE There is no mammographic evidence of malignancy. A 1 year screening mammogram is recommended. Based on the Tyrer Cuzick model (a risk assessment model) the patients lifetime risk is 2.9% and her 10 year risk is 2.9%. According to the ACR, ACS, and NCCN guidelines, an annual breast MRI exam opal g with mammogram is recommended if the patients lifetime risk is 20% or greater. This exam was interpreted at Station ID: [id number]. NOTE: For mammograms, a report in lay terms will be sent to the patient. Approximately 15% of breast malignancies will not be visualized mammographically. In the management of a palpable breast mass, a negative mammogram must not discourage biopsy of a clinically suspicious lesion. Electronically Signed By: Espinoza khan/tati:11/24/2022 16:07:57 letter sent: No_Letter ACR BI-RADS Category 1: Negative 3341F PARENCHYMAL PATTERN: (A) - The breast(s) demonstrate(s) scattered fibroglandular densities. BI-RADS CATEGORY: (1) - 1 Mammogram [id number] 1 year screening LATERALITY: (B)
== END 2022-11-24 14:21 | disposition home or self-care (01) ==
LOC: DI 14:20
PROVIDERS: ATTEND Family Medicine
DX: Z12.31 Encounter for screening mammogram for malignant neoplasm of breast (principal)

== ENCOUNTER 2023-09-15 08:12 | Outpatient (CLI) | payer MEDICARE ==
[2023-09-15 14:53] LABS: BASOPHILS # (AUTO) 0.1 10^3/uL (0.0-0.1); BASOPHILS % (AUTO) 1.2 %; EOSINOPHILS # (AUTO) 0.2 10^3/uL (0.0-0.7); EOSINOPHILS % (AUTO) 4.6 %; HCT - HEMATOCRIT 48.4 % (37.0-47.0); HGB - HEMOGLOBIN 15.2 g/dL (12.0-16.0); LYMPHOCYTES # (AUTO) 1.7 10^3/uL (1.5-3.5); LYMPHOCYTES % (AUTO) 34.1 %; MEAN CORPUSCULAR HEMOGLOBIN 27.8 pg (27.0-31.0); MEAN CORPUSCULAR HGB CONC 31.4 g/dL (32.0-36.0); MEAN CORPUSCULAR VOLUME 88.6 fL (81.0-99.0); MEAN PLATELET VOLUME 10.8 fL (7.9-10.8); MONOCYTES # (AUTO) 0.4 10^3/uL (0.0-1.0); MONOCYTES % (AUTO) 8.9 %; NEUTROPHILS # (AUTO) 2.5 10^3/uL (1.5-6.6); PLT - PLATELET COUNT 266 10^3/uL (130-450); RED BLOOD COUNT 5.46 10^6/uL (4.20-5.40); RED CELL DISTRIBUTION WIDTH 13.2 % (12.0-15.0)
[2023-09-15 15:24] LABS: % IRON SATURATION 39 % (20-50); ALBUMIN/GLOBULIN RATIO 1.7 (1.0-2.2); ALKALINE PHOSPHATASE 71 IU/L (42-121); ALT ALANINE AMINOTRANSFERASE 11 IU/L (10-60); AST ASPARTATE AMINOTRANSFERASE 14 IU/L (10-42); BILIRUBIN,TOTAL 0.9 mg/dL (0.2-1.0); BUN - BLOOD UREA NITROGEN 24 mg/dL (6-20); CALCIUM 9.6 mg/dL (8.5-10.3); CARBON DIOXIDE - CO2 31 mmol/L (21-32); CHLORIDE 106 mmol/L (101-111); CHOL/HDL RATIO 4.6 (<4.4); CHOLESTEROL 261 mg/dL; CREATININE 1.1 mg/dL (0.6-1.3); CRP HIGH SENSITIVITY 1.77 mg/L; GFR - MDRD 48 (>89); GLUCOSE 109 mg/dL (74-104); HDL CHOLESTEROL 57 mg/dL; IRON 145 ug/dL (50-212); LDL CHOLESTEROL,CALCULATED 169 mg/dL; POTASSIUM 4.4 mmol/L (3.5-4.5); SODIUM 141 mmol/L (135-145); TOTAL IRON BINDING CAPACITY 377 ug/dL (250-450); TOTAL PROTEIN 6.4 g/dL (6.4-8.9); TRANSFERRIN 269 mg/dL (203-362); TRIGLYCERIDES 173 mg/dL (48-352); VLDL CHOLESTEROL 35 mg/dL
[2023-09-15 15:30] LABS: THYROID STIMULATING HORMONE 3.45 uIU/mL (0.34-5.60)
[2023-09-15 15:36] LABS: FERRITIN 18.5 ng/mL (11.0-306.8)
[2023-09-15 19:57] LABS: ESTIMATED AVERAGE GLUCOSE 114 mg/dL (70-100); HEMOGLOBIN A1c% 5.6 % (4.27-6.07)
[2023-09-16 07:10] LABS: VITAMIN D 25-HYDROXY 28.5 ng/mL (30.0-100.0)
== END 2023-09-15 08:13 | disposition home or self-care (01) ==
LOC: LAB.S 08:12
PROVIDERS: ATTEND Family Medicine
DX: E78.5 Hyperlipidemia, unspecified (principal); R73.09 Other abnormal glucose; R53.83 Other fatigue; D64.9 Anemia, unspecified
CPT/HCPCS: 36415; 80053; 80061; 82306; 82626; 82728; 83036; 83090; 83540; 83721; 84439; 84443; 84466; 84480; 84481; 84482; 85025; 86141

== ENCOUNTER 2023-09-27 11:47 | Outpatient (CLI) | payer MEDICARE ==
[2023-09-27 14:53] LABS: BILIRUBIN,URINE NEGATIVE (NEGATIVE); GLUCOSE, URINE (UA) NEGATIVE (NEGATIVE); KETONES,URINE (UA) NEGATIVE (NEGATIVE); LEUKOCYTE ESTERASE, URINE NEGATIVE (NEGATIVE); NITRITE,URINE NEGATIVE (NEGATIVE); OCCULT BLOOD,URINE NEGATIVE (NEGATIVE); PROTEIN,URINE NEGATIVE (NEGATIVE); UROBILINOGEN,URINE 0.2 (NORMAL) E.U./dL (NORMAL)
[2023-09-27 14:57] LABS: CLARITY,URINE CLEAR (CLEAR)
[2023-09-27 15:06] LABS: ALBUMIN 3.9 g/dL (3.2-5.5); ALBUMIN/GLOBULIN RATIO 1.6 (1.0-2.2); BILIRUBIN,TOTAL 0.7 mg/dL (0.2-1.0); CALCIUM 9.5 mg/dL (8.5-10.3); POTASSIUM 4.1 mmol/L (3.5-4.5); TOTAL PROTEIN 6.4 g/dL (6.4-8.9); URIC ACID 4.6 mg/dL (2.3-6.6)
== END 2023-09-27 11:48 | disposition home or self-care (01) ==
LOC: LAB.S 11:47
PROVIDERS: ATTEND Family Medicine
DX: N17.9 Acute kidney failure, unspecified (principal); R53.83 Other fatigue; E55.9 Vitamin D deficiency, unspecified
CPT/HCPCS: 36415; 80053; 81001; 81003; 81599; 82306; 82610; 84550; 87086

== ENCOUNTER 2023-12-21 11:23 | Outpatient (CLI) | payer MEDICARE ==
[2023-12-21 14:25] LABS: BASOPHILS # (AUTO) 0.1 10^3/uL (0.0-0.1); BASOPHILS % (AUTO) 0.9 %; EOSINOPHILS # (AUTO) 0.2 10^3/uL (0.0-0.7); EOSINOPHILS % (AUTO) 2.4 %; HCT - HEMATOCRIT 45.3 % (37.0-47.0); HGB - HEMOGLOBIN 14.6 g/dL (12.0-16.0); LYMPHOCYTES # (AUTO) 1.8 10^3/uL (1.5-3.5); LYMPHOCYTES % (AUTO) 27.1 %; MEAN CORPUSCULAR HEMOGLOBIN 28.4 pg (27.0-31.0); MEAN CORPUSCULAR HGB CONC 32.2 g/dL (32.0-36.0); MEAN CORPUSCULAR VOLUME 88.1 fL (81.0-99.0); MEAN PLATELET VOLUME 10.9 fL (7.9-10.8); MONOCYTES # (AUTO) 0.6 10^3/uL (0.0-1.0); MONOCYTES % (AUTO) 8.6 %; NEUTROPHILS % (AUTO) 60.8 %; PLT - PLATELET COUNT 309 10^3/uL (130-450); RED BLOOD COUNT 5.14 10^6/uL (4.20-5.40); RED CELL DISTRIBUTION WIDTH 12.7 % (12.0-15.0); WHITE BLOOD COUNT 6.6 x10^3/uL (4.8-10.8)
[2023-12-21 14:58] LABS: ALBUMIN 3.9 g/dL (3.2-5.5); ALBUMIN/GLOBULIN RATIO 1.6 (1.0-2.2); BILIRUBIN,TOTAL 0.5 mg/dL (0.2-1.0); CRP HIGH SENSITIVITY 0.41 mg/L; POTASSIUM 4.6 mmol/L (3.5-4.5); TOTAL PROTEIN 6.3 g/dL (6.4-8.9)
== END 2023-12-21 11:24 | disposition home or self-care (01) ==
LOC: LAB.S 11:23
PROVIDERS: ATTEND Family Medicine
DX: I10 Essential (primary) hypertension (principal); N17.9 Acute kidney failure, unspecified; E78.5 Hyperlipidemia, unspecified; E55.9 Vitamin D deficiency, unspecified
CPT/HCPCS: 36415; 80053; 82306; 83090; 85025; 86141

== ENCOUNTER 2024-04-26 09:10 | Outpatient (CLI) | payer MEDICARE ==
--- NOTE | 2024-04-26 09:43 | CARDIAC PROCEDURE NOTE ---
Stress Test Report Service Date: 04/26/24 Service Time: 09:30 Ordering Provider: Vincent Betancur MD Indication for Test: Cardiac risk stratification. Significant Medical History: Lavern is referred for a treadmill stress echocardiogram today for cardiac risk stratification, given her elevated CAD factor profile, remote history of syncope, blood pressure elevation and variable dyspnea on exertion. She was recently started on lisinopril for blood pressure elevation and red yeast rice for hyperlipidemia, with follow-up lipid values expected sometime soon. She notes that while she remains very active walking around her neighborhood, which involves a lot of hills, sometimes she finds herself quite dyspneic and needing to stop to rest in order to complete her walks. She denies any chest pressure/discomfort/pain, resting dyspnea, palpitations or repeated lightheadedness. She did undergo a treadmill stress echocardiogram 3 years ago, on which she walked 5 and half minutes with hypertensive blood pressure throughout. Her resting LV function was hyperdynamic and more so with exertion but there was no EKG nor echocardiographic evidence of inducible ischemia. Given her sigmoid-shaped basal septum and near cavity obliteration following peak it was hypothesized that outflow tract obstruction in the setting of dehydration potentially could have precipitated her single episode of unheralded syncope. However since that test that was done she has had no further significant pre- syncopal or syncopal events. She also reports having undergone a low dose CT coronary artrery calcium evaluation this spring, which she believes yielded a score of 97. Cardiac Risk Factors: Positive for major family history of coronary artery disease (affecting her father and his family, as well as 3 brothers), hyperlipidemia (fasting lipids in 09/28 included TChol 261, LDLc 169, HDLc 57, TG 173, for which Red Yeast Rice was initiated, with repeat studies awaited) and hypertension (for which lisinopril was started earlier this year with report of subsequent good BP control); no history of diabetes or tobacco smoking as risk factors (only brief use that was discontinued ~55 yrs ago). Type of Stress Test: ETT with Echocardiography Procedure: -Exercise Treadmill Test- After signing informed consent, the patient underwent echo imaging at rest and than performed treadmill exercise using a Aneudy protocol. The patient exercised for 6 minutes 17 seconds and achieved a peak heart rate of 136 (94 percent predicted maximum heart rate for age), and an estimated workload of 7.5 METS. The test was terminated due to fatigue/shortness of breath. Resting heart rate: 63 Peak heart rate: 136 Normal response to exercise. Resting BP: 116/77 Peak BP: 189/79 Normal BP response to exercise. Room air oxygen saturation during exercise ranged between 95-98%. Rhythm during exercise: Sinus rhythm throughout, without clear ectopy; there was a brief sequence near peak heart rare with QRS widening, likely due to rate- related bundle branch block. Symptoms: She described no chest pressure/discomfort/pain nor lightheadedness. EKG at rest showed normal sinus rhythm, normal in all aspects. EKG at peak stress showed no ischemia by EKG criteria. In Recovery HR dropped rapidly, followed by BP, with near full return to baseline at 5:00 (HR 83, BP 147/68). Echo imaging, performed at rest and with stress, will be reported separately. IYeison MD, was present throughout this treadmill stress study and supervised it in its entirety. Summary: 1) Exercise tolerance was well above average for age and sex as evidenced by CHOLO of 19% (referenced to 70 yr old women). 2) Normal resting EKG. 3) Adequate level of exercise was achieved on this treadmill stress test. 4) Normal BP response to exercise. 5) No ischemic changes by EKG criteria were seen at peak stress. 6) Echo image interpretation reveals normal left ventricular size and systolic function, with borderline concentric LV hypertrophy, with appropriate hyperdynamic augmentation of all segments with exercise, indicating no evidence of prior infarct or inducible ischemia. Although there was mild regurgitation of the aortic, mitral and tricuspid valves, there was no significant structural valvular abnormality nor elevation of estimated pulmonary artery systolic pressure seen on screening study. See separate report for more details. Conclusions and Recommendations: 1) These are highly reassuring treadmill stress echocardiogram results, with exercise time well above average for age, no concern for chest discomfort or disproportionate dyspnea, and no evidence of inducible ischemia by EKG or echocardiographic analysis. In fact, she exercised longer than she did 3 yrs ago and with interval initiation of lisinopril her resting and exercise-associated BPs much better. 2) Given her extensive family history of coronary artery disease and hyperlipidemia, as well as the recent documentation of her coronary artery calcium score near 100, I strongly encouraged her to consider the additional risk-reducing measure of initiation of a potent contemporary long-acting statin. She will discuss this further with Dr. Betancur.
--- NOTE | 2024-04-26 10:54 | CARDIAC PROCEDURE NOTE ---
Stress Test Report Procedure: -Exercise Treadmill Test- After signing informed consent, the patient [underwent echo imaging at rest and then] performed [treadmill][bicycle REMOVE] exercise using a [Aneudy][Modified Aneudy] protocol. The patient exercised for [] minutes and achieved a peak heart rate of [] ([] percent predicted maximum heart rate for age), and an estimated workload of [] METS. The test was terminated due to [achieving target heart rate][fatigue/shortness of breath][chest pain occurred before achieving target HR][pain in --- and could not continue exercise][developed --- rhythm and test stopped][drop in blood pressure occurred and test stopped]. Resting heart rate: [] Peak heart rate: [] [Normal][Abnormal] response to exercise. Resting BP: [] Peak BP: [] [Normal][Hypertensive][Hypotensive] BP response to exercise. Room air oxygen saturation during exercise ranged between []-[]%. Rhythm during exercise: [] Symptoms: []. EKG at rest showed []. EKG at peak stress showed [no ischemia by EKG criteria][ischemic changes were present][]. In Recovery []. [No imaging was ordered with this stress test.][Nuclear imaging performed at rest and with stress and will be reported separately.][Echo imaging performed at rest and with stress will be reported separately.] [Yeison Vaughan MD, was present throughout this treadmill stress study and supervised it in its entirety.]
== END 2024-04-26 09:11 | disposition home or self-care (01) ==
LOC: DI 09:10
PROVIDERS: ATTEND Internal Medicine Cardiovascular Disease
DX: I08.0 Rheumatic disorders of both mitral and aortic valves (principal); R06.09 Other forms of dyspnea; Z82.49 Family history of ischemic heart disease and other diseases of the circulatory system; E78.5 Hyperlipidemia, unspecified; I10 Essential (primary) hypertension; Z87.891 Personal history of nicotine dependence
CPT/HCPCS: 93350

== ENCOUNTER 2024-05-18 07:20 | Outpatient (CLI) | payer MEDICARE ==
[2024-05-18 15:02] LABS: BASOPHILS # (AUTO) 0.1 10^3/uL (0.0-0.1); BASOPHILS % (AUTO) 1.5 %; EOSINOPHILS # (AUTO) 0.2 10^3/uL (0.0-0.7); EOSINOPHILS % (AUTO) 3.8 %; HCT - HEMATOCRIT 43.9 % (37.0-47.0); HGB - HEMOGLOBIN 14.1 g/dL (12.0-16.0); LYMPHOCYTES # (AUTO) 1.1 10^3/uL (1.5-3.5); LYMPHOCYTES % (AUTO) 23.3 %; MEAN CORPUSCULAR HEMOGLOBIN 28.7 pg (27.0-31.0); MEAN CORPUSCULAR HGB CONC 32.1 g/dL (32.0-36.0); MEAN CORPUSCULAR VOLUME 89.4 fL (81.0-99.0); MEAN PLATELET VOLUME 11.3 fL (7.9-10.8); MONOCYTES # (AUTO) 0.5 10^3/uL (0.0-1.0); MONOCYTES % (AUTO) 10.6 %; NEUTROPHILS # (AUTO) 2.9 10^3/uL (1.5-6.6); NEUTROPHILS % (AUTO) 60.6 %; PLT - PLATELET COUNT 249 10^3/uL (130-450); RED BLOOD COUNT 4.91 10^6/uL (4.20-5.40); RED CELL DISTRIBUTION WIDTH 12.8 % (12.0-15.0); WHITE BLOOD COUNT 4.8 x10^3/uL (4.8-10.8)
[2024-05-18 15:22] LABS: ALBUMIN 3.7 g/dL (3.2-5.5); ALBUMIN/GLOBULIN RATIO 1.6 (1.0-2.2); ALKALINE PHOSPHATASE 49 IU/L (42-121); ALT ALANINE AMINOTRANSFERASE 12 IU/L (10-60); AST ASPARTATE AMINOTRANSFERASE 14 IU/L (10-42); BILIRUBIN,TOTAL 0.7 mg/dL (0.2-1.0); BUN - BLOOD UREA NITROGEN 19 mg/dL (6-20); CALCIUM 9.6 mg/dL (8.5-10.3); CARBON DIOXIDE - CO2 27 mmol/L (21-32); CHLORIDE 106 mmol/L (101-111); CHOL/HDL RATIO 3.9 (<4.4); CHOLESTEROL 181 mg/dL; CREATININE 0.9 mg/dL (0.6-1.3); CRP HIGH SENSITIVITY 1.36 mg/L; GFR - MDRD 61 (>89); GLUCOSE 106 mg/dL (74-104); HDL CHOLESTEROL 47 mg/dL; LDL CHOLESTEROL,CALCULATED 115 mg/dL; LDL/HDL RATIO 2.4 (<4.4); POTASSIUM 4.2 mmol/L (3.5-4.5); SODIUM 137 mmol/L (135-145); TRIGLYCERIDES 94 mg/dL; VLDL CHOLESTEROL 19 mg/dL
[2024-05-18 15:32] LABS: THYROID STIMULATING HORMONE 3.01 uIU/mL (0.34-5.60)
[2024-05-18 20:05] LABS: ESTIMATED AVERAGE GLUCOSE 111 mg/dL (70-100); HEMOGLOBIN A1c% 5.5 % (4.27-6.07)
[2024-05-19 03:16] LABS: VITAMIN D 25-HYDROXY 37.6 ng/mL (30.0-100.0)
== END 2024-05-18 07:21 | disposition home or self-care (01) ==
LOC: LAB.S 07:20
PROVIDERS: ATTEND Family Medicine
DX: I10 Essential (primary) hypertension (principal); E78.5 Hyperlipidemia, unspecified; E03.9 Hypothyroidism, unspecified; R53.83 Other fatigue; R73.09 Other abnormal glucose; E55.9 Vitamin D deficiency, unspecified
CPT/HCPCS: 36415; 80053; 80061; 82306; 82626; 83036; 83090; 83721; 84439; 84443; 84480; 84481; 84482; 85025; 86141